=== PATIENT | female | born 1985 ===

== ENCOUNTER 2018-09-12 19:17 | Inpatient (IN) | payer MEDICAID ==
[2018-09-12] MEDS: Lactated Ringer's 1,000 ML IV ONE ×2 (20:00→20:45)
[2018-09-12] MEDS ORDERED: ceFAZolin 1 GM in Sodium Chloride 0.9% 100 ML IVPB ONE (20:27)
[2018-09-12] MEDS ORDERED: ceFAZolin 2 GM in Sodium Chloride 0.9% 100 ML IVPB ONE (20:33)
--- NOTE | 2018-09-12 20:47 | OBADHP ---
Datetime: 09/12/2018 20:01 Admit Comment, IP Provider: 33yo IUP at 38w previous C/S x 3 c/o CTX pain irregular; no VB + FM; no SROM PNC: [facility] - states that she is scheduled for C/S this thursday at [facility] (not on the schedul e)...Documented PNC at [facility] until 36w - Rh neg + Ab 1:8 (No Rhogm given); EDC Sep 24w son o fundal placenta PMH: denies PSH: hernia (pints to abdomen left side); C/S x 3 NKA PSoH: denies smoking ETOH drugs PFH: denies POBGYNH: No STD; C/S x 3 in Dom Rep full term A: IUP at 38w previous C/S x 3 early labor PLAN: with translating machine/service, I explained medical conditio, procedure - repeat C/S, with its risks/complications. She understood. Her quesitions answered. She also does not want BTL. He r partenr is in Dom Rep/not having intercourse...will use alternative methods of control. Info rmed consent obtained Extremities - PN: Normal Abdomen - PN: Normal Back - PN: Normal Lungs - PN: Normal Heart - PN: Normal Thyroid - PN: Normal Neurologic - PN: Normal HEENT - PN: Normal FHR - Baseline A Provider: 150 Membranes, Provider: Intact Pool Provider: Negative IP Hx Assessment: The History has been Reviewed and is Current IP Chief Complaint: Uterine contractions NICHD Variability Prov Fetus A: Moderate 6-25bpm NICHD Accel Fetus A IP Provider: [id number] FHR Category Provider Fetus A: Category I NICHD Decel Fetus A IP Provider: None Dilatation, Provider: 2 Effacement, Provider: long Station, Provider: high Genitourinary Exam: Normal DTRs - PN: Normal EGA AdmitDate IP: 38.2 IP Adm Impression: Term, intrauterine ; Intact Membranes IP Admit Plan: Admit to unit; Initiate Section protocol
[2018-09-12 20:49] LABS: BASO % 0.4 % (0.0-2.0); EOS # 0.1 K/uL (0.0-0.7); EOS % 0.9 % (0.0-4.0); HEMOGLOBIN 9.4 g/dL (12.0-16.0); LYMPH # 2.1 K/uL (1.0-4.3); LYMPH % 22.9 % (20.0-40.0); MEAN CELL VOLUME 80.5 fl (81.0-99.0); MEAN CORPUSCULAR HEMOGLOBIN 26.2 pg (27.0-31.0); MEAN CORPUSCULAR HGB CONC 32.5 g/dL (33.0-37.0); MEAN PLATELET VOLUME 9.2 fl (7.2-11.7); MONO # 0.7 K/uL (0.0-0.8); MONO % 7.5 % (0.0-10.0); NEUT # 6.3 K/uL (1.8-7.0); NEUT % 68.3 % (50.0-75.0); NRBC % 0.2 % (0.0-0.0); RBC 3.59 Mil/uL (3.80-5.20); RED CELL DISTRIBUTION WIDTH 18.1 % (11.5-14.5); WHITE BLOOD COUNT 9.2 K/uL (4.8-10.8)
[2018-09-12] MEDS ORDERED: Oxytocin 30 UNIT in NS 500 ml 30 UNITS/500 ML BAG IV ONE (20:51)
[2018-09-12] MEDS ORDERED: OXYTOCIN/0.9 % NS 20 UNIT/1,000 ML BAG IV SCH (21:00)
[2018-09-12] MEDS ORDERED: ePHEDrine 50 mg/ml Inj ONE (21:05)
[2018-09-12] MEDS ORDERED: Phenylephrine 10 mg/ml Inj ONE (21:05)
[2018-09-12] MEDS ORDERED: Morphine 5 mg/10 ml preservative-free Inj(Duramorph) ONE (21:26)
[2018-09-12] MEDS ORDERED: Bisacodyl 5mg EC Tab PO PRN (22:22)
[2018-09-12] MEDS ORDERED: Oxycodone/Acetaminophen 5/325 mg Tab PO PRN ×2 (22:22)
[2018-09-12] MEDS ORDERED: DiphenhydrAMINE 50 mg/ml Inj IVP PRN (22:26)
[2018-09-13] MEDS ORDERED: Bisacodyl 5mg EC Tab PO PRN (01:51)
[2018-09-13] MEDS ORDERED: DiphenhydrAMINE 50 mg/ml Inj IVP PRN (01:51)
[2018-09-13 02:16] VITALS: O2SAT 99
[2018-09-13] MEDS ORDERED: Simethicone 80 mg Chewtab PO SCH (04:00)
[2018-09-13 06:33] LABS: HEMOGLOBIN 8.4 g/dL (12.0-16.0); MEAN CELL VOLUME 80.9 fl (81.0-99.0); MEAN CORPUSCULAR HEMOGLOBIN 26.2 pg (27.0-31.0); MEAN CORPUSCULAR HGB CONC 32.4 g/dL (33.0-37.0); RBC 3.22 Mil/uL (3.80-5.20); RED CELL DISTRIBUTION WIDTH 17.8 % (11.5-14.5); WHITE BLOOD COUNT 11.2 K/uL (4.8-10.8)
[2018-09-13 06:34] VITALS: BMI 23.6
[2018-09-13] MEDS: OXYTOCIN/0.9 % NS 20 UNIT/1,000 ML BAG IV SCH ×3 (07:02→18:06)
[2018-09-13] MEDS: Simethicone 80 mg Chewtab PO SCH ×5 (07:05→22:43)
--- NOTE | 2018-09-13 08:05 | OBDS ---
DELIVERY PERSONNEL Delivery Doctor: Mandeep Yen DO Disability Specialist: Cornelia Rodriguez RN Anesthesiologist: Coco Tse MD Resident: Izaiah OB Fellow MATERNAL INFORMATION Delivery Anesthesia: Spinal Medications in Delivery: Oxytocin Estimated Blood Loss (ml): 800 Placenta Cultured: No Maternal Complications: None Provider Comments: Pre Op Dx: IUP at 38w early labor Previous C/S x 3 Rh neg Post Op Dx : same Procedure: Repeat LTCS via previous Pfannenstiel incision Surgeon Dr Yen Asst Dr Ruth Bliss OB fellow Josy: Dr Tse Anesth: spinal operative findings; -live infant delivered from [facility] presentation - 9,9 -clear AF -lysis of adhesion -Placenta delivered intact spontaneously -all equipement sponges needles accounted for EBL 800cc LABOR SUMMARY EDC: 09/24/2018 00:00 No. Babies in Womb: 1 Attempted: No Labor Anesthesia: None LABOR INFORMATION Reason for Induction: Not Applicable Onset of Labor: 09/12/2018 14:00 Oxytocin: N/A Group B Beta Strep: Done, Result Unknown Steroids Given: None Reason Steroids Not Administered: Not Applicable MEMBRANES Membranes Rupture Method: Artificial Rupture of Membranes: 09/12/2018 21:53 Length of Rupture (hrs): 0.02 Amniotic Fluid Color: Clear Amniotic Fluid Amount: Small Amniotic Fluid Odor: Normal STAGES OF LABOR Stage 3 hrs: 0 Stage 3 min: 1 Total Time in Labor hrs: 7 Total Time in Labor min: 55 CSECTION DELIVERY Primary Indication: > 2 Previous CSections CSection Urgency: Non Elective CSection Incidence: Repeat Labor: Labor Elective: Nonelective CSection Incision: Lower Uterine Transverse Uterine Closure: Double-layer closure BABY A INFORMATION Infant Delivery Date/Time: 09/12/2018 21:54 Method of Delivery: Born in Route : No : N/A Forceps: N/A Vacuum Extraction: N/A Shoulder Dystocia : No SHOULDER DYSTOCIA BABY A Infant Delivery Date/Time: 09/12/2018 21:54 PRESENTATION/POSITION BABY A Presentation: Cephalic Cephalic Presentation: Vertex PLACENTA INFORMATION BABY A Placenta Delivery Time : 09/12/2018 21:55 Placenta Method of Delivery: Spontaneous Placenta Status: Delivered SCORES BABY A Heart Rate 1 min: >100 bpm Resp Effort 1 min: Good Cry Reflex Irritability 1 min: Cough or Sneeze or Pulls Away Muscle Tone 1 min: Active Motion Color 1 min: Body [place], Extremities Blue Resuscitation Effort 1 min: Tactile Stimulation SCORE 1 MIN: 9 Heart Rate 5 min: >100 bpm Resp Effort 5 min: Good Cry Reflex Irritability 5 min: Cough or Sneeze or Pulls Away Muscle Tone 5 min: Active Motion Color 5 min: Body [place], Extremities Blue Resuscitation Effort 5 min: Tactile Stimulation SCORE 5 MIN: 9 INFANT INFORMATION BABY A Gestational Age at Delivery: 38.2 Gestational Status: Term Outcome : Liveborn Infant Condition : Stable Infant Sex: Female IDENTIFICATION/MEDS BABY A ID Band Number: [id number] ID Band Location: Left Leg; Left Arm WEIGHT/LENGTH BABY A Birthweight (gms): 3310 Weight (lb): 7 Infant Weight (oz): 5 CORD INFORMATION BABY A No. Cord Vessels: 3 Nuchal Cord : N/A Cord Blood Taken: Yes Suction: Mouth; Nose ASSESSMENT BABY A Infant Complications: None Physical Findings at Delivery: Within Normal Limits Infant Respirations: Appears Normal Network Controller/ALS Called : No Care By: Mandeep Hardy RN/Dr. Rome Transferred To: Remains with Mother
--- NOTE | 2018-09-13 08:06 | OBDS ---
DELIVERY PERSONNEL Delivery Doctor: Mandeep Yen DO Pulping Machine Operator: Cornelia Rodriguez RN Anesthesiologist: Coco Tse MD Resident: Izaiah OB Fellow MATERNAL INFORMATION Delivery Anesthesia: Spinal Medications in Delivery: Oxytocin Estimated Blood Loss (ml): 800 Placenta Cultured: No Maternal Complications: None Provider Comments: Pre Op Dx: IUP at 38w early labor Previous C/S x 3 Rh neg Post Op Dx : same Procedure: Repeat LTCS via previous Pfannenstiel incision Surgeon Dr Yen Asst Dr Ruth Bliss OB fellow Josy: Dr Tse Anesth: spinal operative findings; -live infant delivered from [facility] presentation - 9,9 -clear AF -lysis of adhesion -Placenta delivered intact spontaneously -all equipement sponges needles accounted for EBL 800cc LABOR SUMMARY EDC: 09/24/2018 00:00 No. Babies in Womb: 1 Attempted: No Labor Anesthesia: None LABOR INFORMATION Reason for Induction: Not Applicable Onset of Labor: 09/12/2018 14:00 Oxytocin: N/A Group B Beta Strep: Done, Result Unknown Group B Beta Strep: Done, Result Unknown Steroids Given: None Reason Steroids Not Administered: Not Applicable MEMBRANES Membranes Rupture Method: Artificial Rupture of Membranes: 09/12/2018 21:53 Length of Rupture (hrs): 0.02 Amniotic Fluid Color: Clear Amniotic Fluid Amount: Small Amniotic Fluid Odor: Normal STAGES OF LABOR Stage 3 hrs: 0 Stage 3 min: 1 Total Time in Labor hrs: 7 Total Time in Labor min: 55 CSECTION DELIVERY Primary Indication: > 2 Previous CSections CSection Urgency: Non Elective CSection Incidence: Repeat Labor: Labor Elective: Nonelective CSection Incision: Lower Uterine Transverse Uterine Closure: Double-layer closure BABY A INFORMATION Infant Delivery Date/Time: 09/12/2018 21:54 Method of Delivery: Born in Route : No : N/A Forceps: N/A Vacuum Extraction: N/A Shoulder Dystocia : No SHOULDER DYSTOCIA BABY A Delivery Date/Time: 09/12/2018 21:54 PRESENTATION/POSITION BABY A Presentation: Cephalic Cephalic Presentation: Vertex PLACENTA INFORMATION BABY A Placenta Delivery Time : 09/12/2018 21:55 Placenta Method of Delivery: Spontaneous Placenta Status: Delivered SCORES BABY A Heart Rate 1 min: >100 bpm Resp Effort 1 min: Good Cry Reflex Irritability 1 min: Cough or Sneeze or Pulls Away Muscle Tone 1 min: Active Motion Color 1 min: Body [place], Extremities Blue Resuscitation Effort 1 min: Tactile Stimulation SCORE 1 MIN: 9 Heart Rate 5 min: >100 bpm Resp Effort 5 min: Good Cry Reflex Irritability 5 min: Cough or Sneeze or Pulls Away Muscle Tone 5 min: Active Motion Color 5 min: Body [place], Extremities Blue Resuscitation Effort 5 min: Tactile Stimulation SCORE 5 MIN: 9 INFORMATION BABY A Gestational Age at Delivery: 38.2 Gestational Status: Term Outcome : Liveborn Condition : Stable Sex: Female IDENTIFICATION/MEDS BABY A ID Band Number: [id number] ID Band Location: Left Leg; Left Arm WEIGHT/LENGTH BABY A Infant Birthweight (gms): 3310 Weight (lb): 7 Infant Weight (oz): 5 CORD INFORMATION BABY A No. Cord Vessels: 3 Nuchal Cord : N/A Cord Blood Taken: Yes Infant Suction: Mouth; Nose ASSESSMENT BABY A Infant Complications: None Physical Findings at Delivery: Within Normal Limits Infant Respirations: Appears Normal Bath Tester/ALS Called : No Infant Care By: Mandeep Hardy RN/Dr. Rome Transferred To: Remains with Mother
[2018-09-13] MEDS: Oxycodone/Acetaminophen 5/325 mg Tab PO PRN ×4 (08:29→23:31)
[2018-09-13] MEDS: Multivitamin With Minerals Tab PO SCH (08:30)
[2018-09-13] MEDS ORDERED: Multivitamin With Minerals Tab PO SCH (09:00)
[2018-09-14] MEDS: Oxycodone/Acetaminophen 5/325 mg Tab PO PRN ×4 (04:16→20:00)
[2018-09-14] MEDS: Simethicone 80 mg Chewtab PO SCH ×4 (04:17→22:37)
[2018-09-14] MEDS: Multivitamin With Minerals Tab PO SCH (08:10)
--- NOTE | 2018-09-14 09:25 | OP ---
PROCEDURE DATE: 09/12/2018 PREOPERATIVE DIAGNOSES: Intrauterine at 38 plus weeks' gestation, early labor, previous section x3, Rh negative. POSTOPERATIVE DIAGNOSES: Intrauterine at 38 plus weeks' gestation, early labor, previous section x3, Rh negative. PROCEDURE: Repeat low-transverse section via previous Pfannenstiel incision. SURGEON: Candelario Yen DO SOLAR SYSTEMS DESIGNER: Lay Bliss MD (OB fellow). ANESTHESIOLOGIST: Jorge Tse MD ANESTHESIA: Spinal. OPERATIVE FINDINGS: A live , delivered from the cephalic presentation, Apgars were 9 and 9 given at 1 and 5 minutes respectively, clear amniotic fluid, lysis of adhesions performed. The placenta was delivered intact spontaneously. All equipment, sponges, and needles accounted for. DESCRIPTION OF PROCEDURE: The patient was brought to the operating room. After a successful spinal anesthesia by Dr. Tse, she was placed in the supine position. Compression boots were placed on both lower extremities. Valenzuela catheter was placed into the bladder and noted to be draining clear urine and left in place. She was then draped and prepped in usual sterile manner. Once adequate anesthesia was obtained, scalpel was used to remove previous surgical scar. The incision was then taken down to the underlying fascia using a second scalpel. The fascia was nicked in the midline and extended bilaterally using curved Oliveir scissors. The fascia was noted to be very thin. In the midline, we were able to identify preperitoneal fat. Two Kochers were placed on both sides of the midline on the fascia, tented up, and the rectus muscle was both bluntly and sharply dissected. Using curved Olivier scissors, the same was done with the superior aspect of the fascia. From the opening in the midline where we can identify the preperitoneal fat, careful dissection was performed until we were able to identify the peritoneum. This was entered bluntly. The incision was then extended superiorly and inferiorly with direct visualization of the bladder and intestines. Two wet lap pads were placed in the paracolic gutters. A bladder flap was created by incising peritoneum on the uterus and then extended bilaterally using Metzenbaum scissors. Bladder flap was created digitally. A low-transverse incision was made using a scalpel. Upon entering the uterus, clear amniotic fluid was noted. The incision was then extended bilaterally using bandage scissors. First, the head of the was delivered as atraumatically as possible and the remainder of the infant was then delivered as atraumatically as possible. Infant was crying spontaneously. The cord was clamped and cut. The was handed to the lock tender chief operator in attendance. Placenta was delivered intact spontaneously. Uterus was then exteriorized and cleared of debris and clots. The first layer of the uterus was closed using 0 Vicryl suture in interlocking fashion, second layer of the uterus was closed using 0 Vicryl suture imbricating the first layer. Good hemostasis was assured. Posterior cul-de-sac was noted to be clear of debris and clots. Irrigation was performed. There was an adhesion noted from the omentum to the anterior part of the peritoneum right above where we had incised. This was clamped using 2 Hilda clamps and then excised using Metzenbaum scissors and free ties were then placed and doubly ligated, and hemostasis was assured. Once the uterus was placed back into peritoneal cavity, copious irrigation was performed again. The lower uterine aspect was noted to have good hemostasis. All equipment was removed and accounted for. A 0 Vicryl suture was used to approximate the rectus muscle in a running fashion. An 0 PDS suture was then used to approximate the fascial layer in a running fashion, hemostasis being assured at the level of the subcuticular layer. Skin staple was then placed. Pressure bandage was applied. All equipment, sponges, and needles were accounted for. Candelario Yen DO
--- NOTE | 2018-09-14 10:26 | OBPPN ---
Datetime: 09/14/2018 05:28 PP Pain Prov: Within normal limits PP Nausea Prov: Denies PP Flatus Prov: Yes PP BM Prov: No PP Heart Prov: Normal PP Lungs Prov: Normal PP C/S Incision Prov: Normal PP Comments Phys Exam Prov: see progress note PP Impression Prov: Normal progression PP Plan Prov: Continue present management PP Progress Note Prov: POD 2 S: 33 YO female , s/p C/S at GA 38.2 wks. , today POD day 2. Patient seen and examined at [facility] this morning. Patient has no acute complaints, reports that the pain is controlled with pain m edication. Patient is ambulating w/o difficulties. Pt is breast and bottle feeding, she is tolerating regular diet. Lochia like menses in volume. +Flatus, -BM. Denies fevers, chills, dizziness, chest pa in, SOB, N/V/D, hematuria or dysuria. VS: stable GEN: NAD Cardio: RRR, S1S2 present, no murmurs noted Lungs: clear breath sounds b/l, no wheezing Abdomen: BS+, appropriate tenderness to palpation, incision clean and well approximated with stapl es. Uterus is firm and at the level of the umbilicus. Appropriate tenderness EXT: No edema, Charli's negative NEURO/PSYCH: AAOx3, no grossly focal deficits, preserved affect and mood. Post op H/H: 8.4/26 on 09/13/18 A/P: 33 YO female , s/p C/S at GA 38.2 wks. , today POD day 2. Pt is afebrile, tolerating pain w ith medication. Anticipating discharge 09/15/18 SCDs for DVT prophylaxis, encouraged ambulation Percocet 5/325mg q4h Motrin 600mg po q6h for pain as per pain scale Senakot 17.2mg po QHS Encourage Continue vit Case discussed with attending Jarrett Richardson MD PGY1 OB Hospitalist on-call.. I saw this pt on rounds this morning. Agree with note. DOMINIQUE Vital Signs Provider PP: Reviewed; Within Normal Limits Datetime: 09/13/2018 08:14 PP Breasts Prov: Not Done PP Abdomen/Uterus Prov: Normal PP Lochia Prov: Normal PP Vulva/Perineum Prov: Not Done PP CVA Tenderness Prov: Normal PP Extremities Prov: Normal
[2018-09-15] MEDS: Oxycodone/Acetaminophen 5/325 mg Tab PO PRN ×2 (02:22→12:03)
[2018-09-15] MEDS: guaiFENesin 100 mg/5 ml Syrup UD PO PRN ×3 (02:30→16:48)
[2018-09-15] MEDS: Simethicone 80 mg Chewtab PO SCH ×5 (04:00→22:05)
--- NOTE | 2018-09-15 09:08 | OBPPN ---
Datetime: 09/15/2018 06:22 PP Pain Prov: Within normal limits PP Nausea Prov: Denies PP Flatus Prov: Yes PP BM Prov: Yes PP Heart Prov: Normal PP Lungs Prov: Normal PP Comments Phys Exam Prov: see progress note PP Impression Prov: Normal progression PP Plan Prov: Continue present management; Discharge PP Progress Note Prov: POD 3 S: 33 YO female , s/p C/S at GA 38.2 wks. , today POD day 3. Patient seen and examined at bedside this morning. No acute event overnight, no complaints today, reports that the pain is control led with pain medication. Patient is ambulating w/o difficulties. Pt is breast and bottle feeding, sh e is tolerating regular diet. Lochia like menses in volume. +Flatus, +BM. Denies fevers, chills, dizz iness, chest pain, SOB, N/V/D, hematuria or dysuria. VS: stable GEN: NAD Cardio: RRR, S1S2 present, no murmurs noted Lungs: clear breath sounds b/l, no wheezing Abdomen: BS+, appropriate tenderness to palpation, incision clean and well approximated with stapl es. Uterus is firm and at the level of the umbilicus. Appropriate tenderness EXT: No edema, Charli's negative NEURO/PSYCH: AAOx3, no grossly focal deficits, preserved affect and mood. Post op H/H: 8.4/26 on 09/13/18 A/P: 33 YO female , s/p C/S at GA 38.2 wks. , today POD day 3. Pt is afebrile, tolerating pain w ith medication. Normal progression after . -encouraged ambulation S/P rho D Immunoglobulin once Ferrous sulfate Percocet 5/325mg q4h Motrin 600mg po q6h for pain as per pain scale Senakot 17.2mg po QHS Encourage Continue vit Discharge planning for today Case discussed with attending Jarrett Richardson MD PGY1 The patient was seen with the resident I agree with the note Vital Signs Provider PP: Reviewed; Within Normal Limits
[2018-09-15] MEDS: Multivitamin With Minerals Tab PO SCH (09:10)
[2018-09-16] MEDS: Simethicone 80 mg Chewtab PO SCH ×2 (04:13→09:48)
[2018-09-16] MEDS: Multivitamin With Minerals Tab PO SCH (09:47)
[2018-09-16] MEDS: guaiFENesin 100 mg/5 ml Syrup UD PO PRN (09:47)
[2018-09-16 21:27] VITALS: BP 111/63; PULSE 80; RESP 19; TEMP 98.9
== END 2018-09-16 16:50 | disposition home or self-care (01) | DRG 371 ==
LOC: H.EROB2 19:17 → H.L&D 20:37 → H.OB/GYN 09-13 00:45
PROVIDERS: ADMIT Obstetrics & Gynecology; ATTEND Obstetrics & Gynecology
PROC: 10D00Z1 Extraction of Products of Conception, Low, Open Approach (ICD-10-PCS; principal; 2018-09-12)
PROC: 4A1HXCZ Monitoring of Products of Conception, Cardiac Rate, External Approach (ICD-10-PCS; 2018-09-12)
DX: O34.211 Maternal care for low transverse scar from previous cesarean delivery (principal); N85.8 Other specified noninflammatory disorders of uterus; Z3A.38 38 weeks gestation of pregnancy; Z37.0 Single live birth